=== PATIENT | male | born 1980 | race Caucasian/White ===

== ENCOUNTER 2019-02-23 03:57 | Emergency (ER) | payer OTHER ==
--- NOTE | 2019-02-23 03:59 | ED Physician Documentation ---
PD HPI BACK PAIN - Stated complaint Stated Complaint: LOW BACK PX - History obtained from History obtained from: Patient - History of Present Illness Timing - onset: How many days ago (had some left flank pain 2 days ago for couple of hours, then improved. Onset worse pain, similar area, tonight from sound asleep. Pain persists left flank, and is trending into left lower abdomen. Nauseated but no vomiting.) Timing - duration: Hours (the current pain has been couple of hours, with similar symptoms 2 days ago. Feels similar overall to couple of kidney stones he has passed previously.) Timing - details: Abrupt onset, Still present Location: Mid, Lower, Left Quality: Pain, Sharp, Aching Associated symptoms: No: Fever, Weakness, Numbness Improves with: No: Rest Worsened by: No: Movement, Lifting Similar symptoms before: Diagnosis (kidney stones twice in the past, with last about a year or so ago, with residual stones in kidney at that time of 1 and 3 mm.) Recently seen: Not recently seen Review of Systems Constitutional: denies: Fever, Chills, Myalgias Nose: denies: Rhinorrhea / runny nose, Congestion Throat: denies: Sore throat Respiratory: denies: Cough Skin: denies: Rash, Lesions Neurologic: denies: Focal weakness, Numbness PD PAST MEDICAL HISTORY - Past Medical History Cardiovascular: None Respiratory: None Neuro: None Endocrine/Autoimmune: None : Kidney stones - Present Medications Home Medications: Ambulatory Orders Medication Instructions Recorded Confirmed Naproxen 500 mg PO BID #20 tablet 02/23/19 Ondansetron Odt [Zofran] 4 mg TL Q6H PRN #10 tablet 02/23/19 Oxycodone HCl/Acetaminophen 1 - 2 each PO Q6H PRN #20 tablet 02/23/19 [Percocet 5-325 mg Tablet] Tamsulosin [Flomax] 0.4 mg PO DAILY #5 capsule 02/23/19 - Allergies Allergies/Adverse Reactions: Allergies Allergy/AdvReac Type Severity Reaction Status Date / Time amoxicillin Allergy Unknown Verified 02/23/19 04:02 PD ED PE NORMAL - Vitals Vital signs reviewed: Yes - General General: Alert and oriented X 3, Well developed/nourished, Other (appears in pain) - Neck Neck: Supple, no meningeal sign, No adenopathy - Cardiac Cardiac: RRR, No murmur - Respiratory Respiratory: Clear bilaterally - Abdomen Abdomen: Normal bowel sounds, Soft, Non distended, No organomegaly, Other (mild tender LLQ without guarding) - Male Male : Deferred - Rectal Rectal: Deferred - Back Back: No spinal TTP, Other (left CVA tender to percussion; not tender to palpation. ) - Derm Derm: Normal color, Warm and dry, No rash - Neuro Neuro: Alert and oriented X 3, No motor deficit, Normal speech Results - Vitals Vitals: Vital Signs - 24 hr 02/23/19 02/23/19 03:58 04:44 Temperature 36.0 C L Heart Rate 70 70 Respiratory 20 14 Rate Blood Pressure 158/101 H 153/99 H O2 Saturation 100 98 Oxygen O2 Source Room air - Labs Labs: Laboratory Tests 02/23/19 04:05 Urine Color YELLOW Urine Clarity CLEAR Urine pH 5.0 Ur Specific [place] >=1.030 H Urine Protein NEGATIVE Urine Glucose (UA) NEGATIVE Urine Ketones NEGATIVE Urine Occult Blood LARGE H Urine Nitrite NEGATIVE Urine Bilirubin NEGATIVE Urine Urobilinogen 0.2 (NORMAL) Ur Leukocyte Esterase NEGATIVE Urine RBC TNTC H Urine WBC 0-3 Ur Squamous Epith Cells NONE SEEN Urine Bacteria Rare Ur Microscopic Review INDICATED Urine Culture Comments NOT INDICATED PD MEDICAL DECISION MAKING - ED course Complexity details: re-evaluated patient (he says he is feeling improved enough, with pain at 4/10.), considered differential (sounds c/w ureterolithiasis. Will treat that way. Shared decision to not get imaging at this time. ), d/w patient Departure - Departure Disposition: 01 Home, Self Care Clinical Impression: Acute left flank pain, Ureterolithiasis Condition: Stable Record reviewed to determine appropriate education?: Yes Health Concerns: left flank pain consistent with kidney stone Plan of Treatment: pain control and anti-inflammatories Care Goals: resolution of pain and passage of stone Assessment: passing kidney stone, with reduced symptoms, and stable for discharge Instructions: ED Stone Renal W Colic Follow-Up: [facility] [Provider Group] Prescriptions: Naproxen 500 mg PO BID #20 tablet Ondansetron Odt [Zofran] 4 mg TL Q6H PRN #10 tablet PRN Reason: Nausea / Vomiting Oxycodone HCl/Acetaminophen [Percocet 5-325 mg Tablet] 1 - 2 each PO Q6H PRN #20 tablet PRN Reason: pain Tamsulosin [Flomax] 0.4 mg PO DAILY #5 capsule Comments: Stay adequately hydrated. Use anti-inflammatories such as naproxen twice daily with food. Tamsulosin daily until the stone passes to reduce ureter spasms. Use ondansetron if needed for nausea. Add Tylenol or Percocet if needed for pain. 1 or 2 days off work while you are needing to take medications. Recheck if not improved over the next 2 to 3 days and return sooner if worse again. Forms: Activity restrictions
[2019-02-23] MEDS ORDERED: LIDOCAINE-MPF 2% 10 ML in SODIUM CHLORIDE 0.9% 50 ML IV STA (04:20)
[2019-02-23] MEDS ORDERED: KETOROLAC 30 MG/ML VIAL IVP STA (04:20)
[2019-02-23] MEDS ORDERED: SODIUM CHLORIDE 0.9% 1,000 ML IV ONE (04:20)
[2019-02-23] MEDS ORDERED: ONDANSETRON 4 MG/2 ML VIAL IVP STA (04:21)
[2019-02-23] MEDS ORDERED: HYDROmorphone 2 MG/ML VIAL IVP STA (04:21)
[2019-02-23 04:24] LABS: BILIRUBIN,URINE NEGATIVE (NEGATIVE); CLARITY,URINE CLEAR (CLEAR); GLUCOSE, URINE (UA) NEGATIVE (NEGATIVE); KETONES,URINE (UA) NEGATIVE (NEGATIVE); LEUKOCYTE ESTERASE, URINE NEGATIVE (NEGATIVE); NITRITE,URINE NEGATIVE (NEGATIVE); OCCULT BLOOD,URINE LARGE (NEGATIVE); PROTEIN,URINE NEGATIVE (NEGATIVE); UROBILINOGEN,URINE 0.2 (NORMAL) E.U./dL (NORMAL)
[2019-02-23 04:27] LABS: BACTERIA,URINE Rare /HPF (None Seen); RBC,URINE TNTC /HPF (0-5); SQUAMOUS EPITHELIAL CELL,UR NONE SEEN (<= Few)
[2019-02-23] MEDS ORDERED: DEXAMETHASONE 10 MG/ML VIAL IVP STA (05:16)
[2019-02-23] MEDS ORDERED: oxyCODONE/ACET 5/325 Prepack 4 PO STA (05:16)
[2019-02-23] MEDS ORDERED: ONDANSETRON ODT 4 MG Prepack 2 TL PRN (05:16)
[2019-02-23] MEDS ORDERED: TAMSULOSIN 0.4 MG CAPSULE PO STA (05:17)
[2019-02-23] MEDS ORDERED: oxyCODONE 5 MG TABLET PO STA (05:17)
[2019-02-23 05:29] VITALS: BP 158/100
== END 2019-02-23 05:49 | disposition home or self-care (01) ==
LOC: ED 03:57
DX: N20.1 Calculus of ureter (principal)
CPT/HCPCS: 81001; 96361; 96365; 96375; 99283; 99284; A9270; J1170; J7040; 81003; 87086

== ENCOUNTER 2020-08-04 08:57 | Outpatient (CLI) | payer OTHER ==
[2020-08-04 09:49] VITALS: BP 135/94
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
== END 2020-08-04 08:58 | disposition home or self-care (01) ==
LOC: SC 08:57
PROVIDERS: ATTEND Nurse Practitioner Family
DX: R06.83 Snoring (principal); R06.81 Apnea, not elsewhere classified; R51.9 Headache, unspecified; R41.89 Other symptoms and signs involving cognitive functions and awareness; G47.10 Hypersomnia, unspecified; G47.8 Other sleep disorders; E66.3 Overweight; Z68.29 Body mass index [BMI] 29.0-29.9, adult
CPT/HCPCS: 99203; 99212

== ENCOUNTER 2020-09-26 19:25 | Outpatient (CLI) | payer OTHER | END 2020-09-26 19:26 | disposition home or self-care (01) | LOC: SC 19:25 | PROVIDERS: ATTEND Nurse Practitioner Family | DX: G47.33 Obstructive sleep apnea (adult) (pediatric) (principal) | CPT/HCPCS: 95810 ==

== ENCOUNTER 2020-10-05 07:39 | Outpatient (CLI) | payer OTHER ==
--- NOTE | 2020-10-05 08:15 | SLEEP CARE CONSULTATION ---
Information from patient questionnaire entered by Jodie Mosley. I have reviewed and concur with the information entered by Jodie Mosley. This document represents the service I personally performed and the decisions made by , Sadaf Garvin ARNP. History of Present Illness Service Date and Time: 10/05/2020 0739 Initial [place] Sleepiness Scale score: 17 (in 2020) Current [place] Sleepiness Scale score: 17 Additional HPI information: DAISY CLOUD returns for follow up and results of the recently performed polysomnography. I explained the pathophysiology behind obstructive sleep apnea. We then spent quite a bit of time discussing different treatment options. For mild obstructive sleep apnea, surgery and oral appliance are alternatives to nasal CPAP therapy but in moderate or severe cases, nasal CPAP is the most effective and reliable treatment. Because apnea is primarily in supine position, then positional management therapy could be effective. Methods discussed such as positioning with pillows, using a T-shirt with tennis balls in the back, and shown commercial products that have a pillow format on back to prevent supine sleep. I reviewed the impact of weight changes on sleep apnea and strongly recommended losing weight. After some discussion, the patient will take information home and talk to his about treatment options and call us with his decision. I explained how CPAP machine works with sample devices [email or web address] [email or web address] and [email or web address] [email or web address] and what to expect when using the machine. Patient was cautioned about risks of drowsy driving until sleepiness symptoms resolve. Sleep Study - Results Type of Sleep Study: Home sleep study Prior sleep studies: No Polysomnography/Home Sleep Study results: IMPRESSION: The quality of the study is good. The patient had normal sleep efficiency. The sleep architecture was relatively normal as well considering the first night effect . Respiratory monitoring showed mild obstructive sleep apnea-hypopnea (AHI = 9.2) associated with oxyhemoglobin desaturation and mild hypoxia (puma oxygen saturation of 85%) but not sleep fragmentation.. The respiratory events occurred almost exclusively during supine sleep (supine AHI = 12.7; non-supine = 0.53). Snore was light to loud in intensity. There was no significant periodic leg movement of sleep. Cardiac rhythm was normal sinus rhythm without significant arrhythmia. No abnormal behavior (parasomnia) observed during the night. Allergies and Home Medications Drug allergies reviewed: Yes (amoxicillin) Home medication list reviewed: Yes (cymbalta, concerta) Review of Systems Review of systems same as previous: No (ADHD, Depression) Physical Exam Heart Rate: 99 O2 Saturation: 98 Height: 5 ft 11 in Weight: 216 lb Body Mass Index: 30.1 BMI Classification: Obese Impression and Plan 1. Obstructive Sleep Apnea-Hypopnea Syndrome, mild, with lowest oxygen saturation of 85%. Obviously this is the cause of the patients symptoms of unrefreshed sleep, and excessive daytime sleepiness. Positive pressure therapy could benefit ADHD and depression. I reviewed treatment options and patient would like to talk to his before starting any specific therapy. Because the apnea is more severe supine, I instructed to avoid sleeping supine using pillow positioning until able to start CPAP use. I gave [facility] brochures on Non-pap treatments and Pap Tips for his review. * Patient to call office with his decision on type of therapy he would like to start. * Attempt to lose weight. * Avoid alcohol consumption near bedtime. * Avoid supine sleep. * The patient is again cautioned about driving until sleepiness completely resolves. * Return 1-2 months to review choice of treatment. Counseling Topics: Weight loss health impact Visit Type: In Office Time Spent with Patient (minutes): 20 Provider Statement: I spent 100% of the Face to Face Visit with the patient with greater than 50% spent counseling the patient and coordination of care.
== END 2020-10-05 07:40 | disposition home or self-care (01) ==
LOC: SC 07:39
PROVIDERS: ATTEND Nurse Practitioner Family
DX: G47.33 Obstructive sleep apnea (adult) (pediatric) (principal); E66.9 Obesity, unspecified; Z68.30 Body mass index [BMI] 30.0-30.9, adult
CPT/HCPCS: 99212; 99213

== ENCOUNTER 2020-12-07 14:00 | Outpatient (CLI) | payer OTHER ==
--- NOTE | 2020-12-07 14:38 | SLEEP CARE CONSULTATION ---
Information from patient questionnaire entered by Ronen Christianson. I have reviewed and concur with the information entered by Ronen Christianson. This document represents the service I personally performed and the decisions made by , Sadaf Garvin ARNP. History of Present Illness Service Date and Time: 12/07/2020 1400 Previous diagnosis: Mild, Obstructive Sleep Apnea-Hypopnea Syndrome AHI: 9.2 Reason for follow up: first compliance (10/25 setup) Equipment type: CPAP Equipment obtained from: Other (CPAP Medical; got initial supplies so far) Mask style: Nasal pillows (medium) Backup mask available: Yes (other mask) Last cushion change: last night Prior sleep studies: Yes Year and Where: 2020 [facility] additional information: DAISY CLOUD was diagnosed to have mild, AHI 9.2, obstructive sleep apnea- hypopnea syndrome and returned today for CPAP therapy first compliance follow- up. CPAP Compliance Data - Data Reviewed with Patient Average duration of nightly device use: 3 h 47 min Compliance rate %: 43.3 Current pressure setting (cmH2O): 4-15 (median 4.9, avg 6.1, max 7.1) Humidity settin Heated hose settin Average residual AHI: 2.4 Average large leak: 13 sec Subjective Missed days of use due to: reports: mask issues (getting tangled in hose when turning), other (FORGOT) Patient concerns: reports: mask leak noise (seal better with the medium mask). denies: aerophagia, mask discomfort, air blowing in eyes, condensation in mask/hose, nasal congestion, dry mouth, nose, throat, epistaxis, other Observed to snore while using device: No Current pressure setting perceived as: comfortable On therapy, patient: reports: sleeping better, awakening more refreshed, being more awake and alert during the day, more rested overall. denies: drowsiness while driving Initial [place] Sleepiness Scale score: 17 (in 2019) Current [place] Sleepiness Scale score: 8 Allergies and Home Medications Home medication list reviewed: Yes (Concerta/ Cymbalta) Review of Systems Review of systems same as previous: No (ADHD/Depression) Physical Exam Heart Rate: 92 O2 Saturation: 98 Height: 5 ft 11 in Weight: 220 lb Body Mass Index: 30.7 BMI Classification: Obese Impression and Plan 1. Obstructive Sleep Apnea-Hypopnea Syndrome, mild, with poor treatment compliance and good apnea control. On CPAP therapy, the patient has better sleep quality and is more rested overall. We discussed ways to increase compliance and he voiced understanding. He gets wrapped up in the hose because it comes out of the front of the mask. He would like to try the AirFit P30i mask and does have headgear from the full face mask he tried that it can work on. I will adjust his pressure to 5-7 cmH2O to reflect the pressures used by the patient. I will also write for the new mask for him to try since it will work with the other headgear with the hose coming off the top of head. This should work better for him. He has some skin irritation on the inside of the nostrils from the nasal pillows. I advised him to put on a little petroleum jelly in the mornings to moisturize and reduce skin irritation. He voiced understanding. He states he is moving middle o december. I will have him follow up in 1 month to recheck his compliance. Patient's apnea severity and rationale for treatment to reduce apnea, improve sleep quality and reduce cardiovascular and cerebrovascular events was reviewed. I also reviewed the benefit of consistent device use of CPAP for depression and attention deficit. * Change auto CPAP pressure to 5-7 cmH2O * Notify me if snoring with mask or feeling that the pressure is too much or too little * Attempt to lose weight * Call this office if any problems using CPAP * Return for follow up in 1-2 months, or sooner if concerns arise Counseling Topics: Spare mask, Weight loss health impact Visit Type: In Office Time Spent with Patient (minutes): 19 Provider Statement: I spent 100% of the Face to Face Visit with the patient with greater than 50% spent counseling the patient and coordination of care.
== END 2020-12-07 14:01 | disposition home or self-care (01) ==
LOC: SC 14:00
PROVIDERS: ATTEND Nurse Practitioner Family
DX: G47.33 Obstructive sleep apnea (adult) (pediatric) (principal); E66.8 Other obesity; Z68.30 Body mass index [BMI] 30.0-30.9, adult
CPT/HCPCS: 99212

== ENCOUNTER 2021-01-05 13:58 | Outpatient (CLI) | payer OTHER ==
--- NOTE | 2021-01-05 15:00 | SLEEP CARE CONSULTATION ---
Information from patient questionnaire entered by Anju Ruff. I have reviewed and concur with the information entered by Anju Ruff. This document represents the service I personally performed and the decisions made by , Sadaf Garvin ARNP. History of Present Illness Service Date and Time: 01/05/2021 1358 Previous diagnosis: Mild, Obstructive Sleep Apnea-Hypopnea Syndrome AHI: 9.2 (in 2020) Reason for follow up: one month Equipment type: CPAP Equipment obtained from: Other ([facility]AP [facility] Supplies; getting supplies as needed) Mask style: Nasal pillows Mask brand: Resmed Backup mask available: Yes (other mask) Last cushion change: 1 week Prior sleep studies: Yes Year and Where: 2020 - [facility] Type of Sleep Study: Polysomnography HPI additional information: DAISY CLOUD was diagnosed to have mild, AHI 9.2, obstructive sleep apnea- hypopnea syndrome and returned today for CPAP therapy one month pressure change follow-up. CPAP Compliance Data - Data Reviewed with Patient Average duration of nightly device use: 4 hr 45 min Compliance rate %: 63.3 Current pressure setting (cmH2O): 5-7 Humidity settin Heated hose settin Average residual AHI: 2.7 Average large leak: 13 sec Subjective Missed days of use due to: reports: mask issues Patient concerns: reports: mask leak noise, other (whistling, inner nose soreness). denies: aerophagia, mask discomfort, air blowing in eyes, condensation in mask/hose, nasal congestion, dry mouth, nose, throat, epistaxis Observed to snore while using device: No Current pressure setting perceived as: comfortable On therapy, patient: reports: sleeping better, awakening more refreshed, being more awake and alert during the day, more rested overall. denies: drowsiness while driving Initial [place] Sleepiness Scale score: 17 (in 2020) Current [place] Sleepiness Scale score: 13 Allergies and Home Medications Home medication list reviewed: Yes (no new meds) Review of Systems Review of systems same as previous: Yes (no changes) Physical Exam Heart Rate: 103 O2 Saturation: 99 Height: 5 ft 11 in Weight: 210 lb Body Mass Index: 29.2 BMI Classification: Overweight Impression and Plan 1. Obstructive Sleep Apnea-Hypopnea Syndrome, mild, with fair treatment compliance and good apnea control. On CPAP therapy, the patient has better sleep quality and is more rested overall. He tried the nasal pillows Airfit P30i mask but it did not fit well and he has some soreness on the inside of nostrils on left side. He brought in the other masks he has tried and found that he liked the Dreamwear full face mask but when he grew out his quesada it started to leak, especially when he layed on his side. We looked at a nasal cushion mask from [email or web address] and he thinks that would be better than the pillows. I will write to try this mask. He is moving to [place] on Sunday. He was advised to find a sleep center in the area for follow up once he has moved and settled on that end. He voiced understanding. Patient's apnea severity and rationale for treatment to reduce apnea, improve sleep quality and reduce cardiovascular and c erebrovascular events was reviewed. I also reviewed the benefit of consistent device use of CPAP for depression and attention deficit. * Continue autoCPAP pressure at 5-7 cmH2O * Try a Dreamwear nasal cushion mask * Follow up in [place] for compliance check * Return for follow up as needed Counseling Topics: Spare mask, Weight loss health impact Visit Type: In Office Time Spent with Patient (minutes): 25 Provider Statement: I spent 100% of the Face to Face Visit with the patient with greater than 50% spent counseling the patient and coordination of care.
== END 2021-01-05 13:59 | disposition home or self-care (01) ==
LOC: SC 13:58
PROVIDERS: ATTEND Nurse Practitioner Family
DX: G47.33 Obstructive sleep apnea (adult) (pediatric) (principal); E66.3 Overweight; Z68.29 Body mass index [BMI] 29.0-29.9, adult
CPT/HCPCS: 99212; 99213